=== PATIENT | male | born 2005 | race Caucasian/White ===

== ENCOUNTER 2023-10-03 05:27 | Emergency (ER) | payer SELFPAY ==
[~2023-10-03] VITALS: Ht 172.7 cm; Wt 68.0 kg
[2023-10-03 05:40] VITALS: O2SAT 99
[2023-10-03] MEDS: DOXYCYCLINE HYCLATE 100MG CAPSULE PO ONE (07:15)
[2023-10-03] MEDS: CEFTRIAXONE SODIUM 1G VIAL IM ONE (07:15)
[2023-10-03] MEDS ORDERED: DOXY100T2 PO (07:17)
[2023-10-03 07:44] VITALS: BP 118/78; PULSE 81; RESP 18; TEMP 98.4
== END 2023-10-03 07:59 | disposition home or self-care (01) ==
LOC: ER 05:54
DX: A63.8 Other specified predominantly sexually transmitted diseases (principal); J45.909 Unspecified asthma, uncomplicated; Z88.6 Allergy status to analgesic agent
CPT/HCPCS: 99283; 96372; J0696